=== PATIENT | male | born 1960 | race Caucasian/White ===

== ENCOUNTER 2020-05-11 17:55 | Emergency (ER) | payer OTHER, SELFPAY ==
[2020-05-11 17:57] VITALS: BP 154/96; PULSE 78; RESP 15; TEMP 36.5; O2SAT 98; BMI 40.6
--- NOTE | 2020-05-11 18:22 | ED.VISSUMM ---
- ER Visit Summary Date of Service: 05/11/20 Chief Complaint: Right shoulder pain History of Present Illness: The patient is a 60 M presenting with right shoulder pain. Patient states he slipped and fell at work on May 05. He states he fell directly on his right shoulder. He did not hit his head or lose consciousness. He has been taking ibuprofen since that time. He complains of persistent pain in his right shoulder. He has remote history of rotator cuff repair. Denies other complaints. Physical Examination: Vitals are stable. Patient is afebrile. Alert no acute distress. HEENT exam is unremarkable. Neck is nontender Lungs are clear and equal bilaterally. Heart is regular rate and rhythm. Extremities diffuse right shoulder tenderness with ecchymosis and painful range of motion. Neurovascularly intact distally. Skin is warm and dry. No focal neurologic deficit. Remainder of exam is unremarkable. Emergency Department Course and Treatment: Right shoulder xray read by myself and radiology shows no acute radiographic abnormalities. Patient was given a sling. I have concern for rotator cuff injury and advised to follow up with [facility] care and orthopedics. Advised to return to the ED for worsening complaints. Disposition: Discharge home Impression: Right shoulder injury This note was generated with [employer] dictation software. It may contain incorrect words, spelling, and punctuation that were not noted in review of the chart prior to signing ED Disposition - Plan for ED Patient: Instructions: ED Shoulder Sprain Referrals: [facility] [GROUP OF PHYSICIANS] - Yuval Gilliam DO [STAFF PHYSICIAN] -
--- NOTE | 2020-05-11 18:30 | RAD_ITS ---
INDICATION: fall EXAMINATION/TECHNIQUE: X-RAY - RIGHT XR Shoulder Min 2 Views COMPARISON: None. FINDINGS: No acute fracture or malalignment. Normal internal and external rotation. Mild degenerative changes of the glenohumeral and acromioclavicular joint. Postsurgical changes of the shoulder with anchor in place. The soft tissues are unremarkable. RAD/Shoulder min 2 Views IMPRESSION: No acute radiographic abnormalities. Electronically Signed: Gianfranco Adams MD at 18:50 EDT Tel , Service support ,
--- NOTE | 2020-05-11 19:00 | ED.DEP ---
ED Disposition - Plan for ED Patient: Instructions: ED Shoulder Sprain Referrals: [facility] [GROUP OF PHYSICIANS] - Yuval Gilliam DO [STAFF PHYSICIAN] -
--- NOTE | 2020-05-11 19:17 | ED.RN ---
pt refused arm sling.
== END 2020-05-11 19:17 | disposition home or self-care (01) ==
LOC: ED 18:37
PROVIDERS: Emergency Provider Emergency Medicine
DX: S49.91XA Unspecified injury of right shoulder and upper arm, initial encounter (principal); K21.9 Gastro-esophageal reflux disease without esophagitis; F17.220 Nicotine dependence, chewing tobacco, uncomplicated; Z79.899 Other long term (current) drug therapy; W01.0XXA Fall on same level from slipping, tripping and stumbling without subsequent striking against object, initial encounter; Y93.89 Activity, other specified; Y92.89 Other specified places as the place of occurrence of the external cause; Y99.0 Civilian activity done for income or pay
CPT/HCPCS: 73030; 99282